=== PATIENT | female | born 1970 | race Caucasian/White ===

== ENCOUNTER 2022-07-21 10:03 | Emergency (ER) | payer OTHER ==
[2022-07-21] MEDS ORDERED: TETANUS, DIPHTHERIA, PERTUSSIS VAC/PF 0.5ML (>10YR OLD) IM ONE (10:30)
[2022-07-21] MEDS ORDERED: AMOX1TAB16 MT (11:05)
[2022-07-21] MEDS ORDERED: AMOXICILLIN/POTASSIUM CLAVULANATE 875/125MG TAB PO ONE (11:15)
[2022-07-21 11:26] VITALS: BP 117/67
== END 2022-07-21 11:28 | disposition home or self-care (01) ==
LOC: ER 10:03
DX: S41.152A Open bite of left upper arm, initial encounter (principal); W54.0XXA Bitten by dog, initial encounter; Y93.89 Activity, other specified; Y92.89 Other specified places as the place of occurrence of the external cause; Y99.8 Other external cause status
CPT/HCPCS: 90471; 90715; 99283; Z7610